=== PATIENT | male | born 1995 | race Caucasian/White ===

== ENCOUNTER → 2024-03-19 | Outpatient (CLI) | payer OTHER ==
[~2024-03-19] VITALS: Ht 182.9 cm; Wt 79.1 kg
[~2024-03-19] MED LIST: PRILOSEC 20MG20 MG PO; Triamcinolone 40 MG/ML 1 ML VIAL IJ SCH
[2024-03-19 08:39] VITALS: BP 135/75; PULSE 50; TEMP 97.9
[2024-03-19 09:25] VITALS: BP 118/87; PULSE 57
== END ==
LOC: COL.RAD 08:10
DX: M54.50 Low back pain, unspecified (principal)
CPT/HCPCS: J0665; J3301